=== PATIENT | male | born 1995 | race American Indian/Alaskan Native ===

== ENCOUNTER 2021-07-27 11:38 | Emergency (ER) | payer SELFPAY ==
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
[2021-07-27 12:35] LABS: Basophils % (Auto) 0.4 % (0.0-1.8); Eosinophils % (Auto) 0.7 % (0.0-4.3); Hematocrit 44.7 % (35.5-45.6); Hemoglobin 14.5 gm/dl (11.8-15.2); Lymphocytes # (Auto) 1.6 K/mm3 (1.2-5.4); Lymphocytes % (Auto) 34.8 % (13.4-35.0); Mean Corpuscular HGB Conc 32 % (32-34); Mean Corpuscular Volume 88 fl (84-94); Monocytes # (Auto) 0.4 K/mm3 (0.0-0.8); Platelet Count 208 K/mm3 (140-440); Red Blood Count 5.09 M/mm3 (3.65-5.03); Red Cell Distribution Width 14.2 % (13.2-15.2)
[2021-07-27 12:49] LABS: BUN/Creatinine Ratio 11; Blood Urea Nitrogen 11 mg/dL (9-20); Calcium 9.5 mg/dL (8.4-10.2); Hemolysis Index 87
[2021-07-27 13:52] LABS: Bilirubin,Urine NEG (Negative); Blood,Urine NEG (Negative); Color,Urine Yellow (Yellow); Mucus,Urine 2+ /HPF; Protein,Urine <15 mg/dL mg/dL (Negative); Urobilinogen,Urine < 2.0 mg/dL (<2.0); WBC,Urine < 1.0 /HPF (0.0-6.0)
[2021-07-27 13:54] LABS: Amphetamine Screen,Urine Negative; Benzodiazepines Screen,Urine Negative; Cocaine Screen,Urine Negative; Methadone Screen,Urine Negative; Opiate Screen,Urine Negative
[2021-07-27 14:15] LABS: Cannabinoid Screen,Urine Positive
[2021-07-27] MEDS ORDERED: ZIPRASIDONE MESYLATE 20 MG VIAL IM ONE (23:32)
[2021-07-27] MEDS ORDERED: diphenhydrAMINE 50 MG/ML VIAL IM ONE (23:32)
--- NOTE | 2021-07-28 12:32 | Event Note ---
Date: 07/28/21 S: Patient has no complaints. O: No overnight events. Patient is calm and cooperative. Vital signs stable. A: Acute psychosis P: 1013; awaiting inpatient psychiatric placement
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
[2021-07-28] MEDS: risperiDONE 0.25 MG TAB PO SCH ×2 (14:07→23:14)
[2021-07-28] MEDS ORDERED: LORazepam 2 MG/ML VIAL IM ONE (15:35)
[2021-07-28] MEDS ORDERED: ZIPRASIDONE MESYLATE 20 MG VIAL IM ONE (15:35)
[2021-07-28] MEDS: traZODone 50 MG TAB PO SCH (23:14)
[2021-07-29] MEDS ORDERED: risperiDONE 1 MG TAB ONE (07:00)
[2021-07-29] MEDS ORDERED: ZIPRASIDONE 20 MG CAP ONE (07:00)
[2021-07-29] MEDS ORDERED: traZODone 50 MG TAB PO ONE (07:00)
[2021-07-29] MEDS ORDERED: risperiDONE 0.25 MG TAB ONE (09:00)
[2021-07-29] MEDS: risperiDONE 0.25 MG TAB PO SCH (09:43)
--- NOTE | 2021-07-29 10:27 | Progress Note ---
Subjective - Reason for Consult Consult date: 07/29/21 Reason for consult: psychosis - Chief Complaint Chief complaint: The patient was seen today. He states he feels better. He is still having psychosis and his thought process is illogical. He denies hallucinations initially, but when I ask him again about fantasies of raping women, the patient says "it's when my focusing starts to decrease that causes me to be aroused." He says "it's like I can feel hormones in my stomach that I need to do something about." he patient says "I can't live like this, but I don't want to rape anybody. I'd rather it be a mutual agreement." He then says "the voices are telling me to do it." He denies SI/HI. REVIEW OF SYSTEMS Constitutional: Negative for weight loss ENT: Negative for stridor Respiratory: Negative for cough or hemoptysis All other systems reviewed and are negative MENTAL STATUS EXAMINATION General Appearance and Behavior: Age appropriate, good hygiene, wearing appropriate clothes, calm and cooperative Cooperation: cooperative Psychomotor Behavior: Psychomotor normal Mood: better Affect and affective range: congruent with stated mood Thought Process: illogical Thought Content: Hallucinations Speech: Normal rate, volume and rhythm Suicidal Ideation: Denies Homicidal Ideation: Denies Hallucinations: Auditory Delusions: Yes Impulse Control: Impaired Insight and Judgment: Limited insight and judgment Memory: Limited Attention: Limited Orientation: Alert, oriented Assessment and Plan (1) Schizoaffective Disorder TREATMENT PLAN 1013 Increase Risperidone 1mg po BID Trazodone 50mg po qhs Sitter: per primary Medical: per primary Disposition: Recommend acute psychiatric inpatient treatment Will follow. Thanks Case staffed with Dr. Ku Mental Status Exam - Vital signs Last Vital Signs Temp 98.8 F 07/29/21 08:43 Pulse 84 07/29/21 08:43 Resp 16 07/29/21 08:43 BP 106/59 07/29/21 08:43 Pulse Ox 100 07/29/21 08:43
[2021-07-29] MEDS: risperiDONE 1 MG TAB PO SCH ×2 (11:15→22:00)
[2021-07-29] MEDS: traZODone 50 MG TAB PO SCH (22:00)
--- NOTE | 2021-07-30 09:18 | Progress Note ---
Subjective - Reason for Consult Consult date: 07/30/21 Reason for consult: psychosis - Chief Complaint Chief complaint: The patient was seen today. He denies hallucinations, but he is still responding to internal stimuli. He is staring intensely. When asking was he still feeling like he felt yesterday, the patient says "I feel like I can breath." When asking why was he staring he says, "I'm just pain attention." He denies SI/HI. REVIEW OF SYSTEMS Constitutional: Negative for weight loss ENT: Negative for stridor Respiratory: Negative for cough or hemoptysis All other systems reviewed and are negative MENTAL STATUS EXAMINATION General Appearance and Behavior: Age appropriate, good hygiene, wearing appropriate clothes, calm and cooperative Cooperation: cooperative Psychomotor Behavior: Psychomotor normal Mood: better Affect and affective range: congruent with stated mood Thought Process: illogical Thought Content: Hallucinations Speech: Normal rate, volume and rhythm Suicidal Ideation: Denies Homicidal Ideation: Denies Hallucinations: Auditory Delusions: Yes Impulse Control: Impaired Insight and Judgment: Limited insight and judgment Memory: Limited Attention: Limited Orientation: Alert, oriented Assessment and Plan (1) Schizoaffective Disorder TREATMENT PLAN 1013 Increase Risperidone 2mg po BID Continue Trazodone 50mg po qhs Sitter: per primary Medical: per primary Disposition: Recommend acute psychiatric inpatient treatment Will follow. Thanks Case staffed with Dr. Ku Mental Status Exam - Vital signs Last Vital Signs Temp 98 F 07/30/21 08:15 Pulse 84 07/30/21 08:15 Resp 20 07/30/21 08:15 BP 120/76 07/30/21 08:15 Pulse Ox 98 07/30/21 08:15
[2021-07-30] MEDS: risperiDONE 1 MG TAB PO SCH ×2 (09:47→22:24)
--- NOTE | 2021-07-30 10:16 | Event Note ---
No overnight issues. Psychiatric team recommended acute psychiatric inpatient treatment. Patient is medically clear for psychiatric care.
[2021-07-30] MEDS: traZODone 50 MG TAB PO SCH (22:24)
--- NOTE | 2021-07-31 08:36 | Progress Note ---
Subjective - Reason for Consult Consult date: 07/31/21 Reason for consult: psychosis - Chief Complaint Chief complaint: The patient was seen today. He says he's feeling okay. He denies SI/HI. He also initially denies hallucinations, but then tells me that the t.v is not a normal t.v. He says "it seems like it's directly talking to me and playing tricks on me." The sitter says around 4 pm every day the patient has severe psychosis. He says the patient starts talking to the voices and thinks Africans are in the t.v. The sitter says they have to keep the t.v off to keep from upsetting him. REVIEW OF SYSTEMS Constitutional: Negative for weight loss ENT: Negative for stridor Respiratory: Negative for cough or hemoptysis All other systems reviewed and are negative MENTAL STATUS EXAMINATION General Appearance and Behavior: Age appropriate, good hygiene, wearing appropriate clothes, calm and cooperative Cooperation: cooperative Psychomotor Behavior: Psychomotor normal Mood: better Affect and affective range: congruent with stated mood Thought Process: illogical Thought Content: Hallucinations Speech: Normal rate, volume and rhythm Suicidal Ideation: Denies Homicidal Ideation: Denies Hallucinations: Auditory Delusions: Yes Impulse Control: Impaired Insight and Judgment: Limited insight and judgment Memory: Limited Attention: Limited Orientation: Alert, oriented Assessment and Plan (1) Schizoaffective Disorder TREATMENT PLAN 1013 Continue Risperidone 2mg po BID Continue Trazodone 50mg po qhs Depakote DR 125mg po BID Start Prozac 20mg po daily Sitter: per primary Medical: per primary Disposition: Recommend acute psychiatric inpatient treatment Will follow. Thanks Case staffed with Dr. Ku Mental Status Exam - Vital signs Last Vital Signs Temp 99.1 F 07/30/21 20:50 Pulse 80 07/30/21 20:50 Resp 16 07/30/21 20:50 BP 111/60 07/30/21 20:50 Pulse Ox 98 07/30/21 20:50
[2021-07-31] MEDS: risperiDONE 1 MG TAB PO SCH ×2 (10:27→22:43)
[2021-07-31] MEDS: FLUoxetine 20 MG CAP PO SCH (10:27)
[2021-07-31] MEDS: DIVALPROEX DR 125 MG TAB PO SCH ×2 (10:27→22:43)
--- NOTE | 2021-07-31 10:58 | Event Note ---
Date: 07/31/21 Patient is a 25-year-old F Lebanese male who is still exhibiting some active psychotic behaviors. Patient still hard to direct from hallucinations and delusions. Patient to continue is a 1013. Patient is medically cleared. Patient is stable at this time and needing no additional interventions. Please see psychiatry note as follows: Psychiatry Progress Note Patient Name: ROCHELLE MATHIS Date of : 89 Patient Status: Emergency Emergency Provider: MAGGY PARMAR Date: 07/31/21 08:31 Initialization Date: 07/31/21 08:31 Subjective - Reason for Consult Consult date: 07/31/21 Reason for consult: psychosis - Chief Complaint Chief complaint: The patient was seen today. He says he's feeling okay. He denies SI/HI. He also initially denies hallucinations, but then tells me that the t.v is not a normal t.v. He says "it seems like it's directly talking to me and playing tricks on me." The sitter says around 4 pm every day the patient has severe psychosis. He says the patient starts talking to the voices and thinks Africans are in the t.v. The sitter says they have to keep the t.v off to keep from upsetting him. REVIEW OF SYSTEMS Constitutional: Negative for weight loss ENT: Negative for stridor Respiratory: Negative for cough or hemoptysis All other systems reviewed and are negative MENTAL STATUS EXAMINATION General Appearance and Behavior: Age appropriate, good hygiene, wearing appropriate clothes, calm and cooperative Cooperation: cooperative Psychomotor Behavior: Psychomotor normal Mood: better Affect and affective range: congruent with stated mood Thought Process: illogical Thought Content: Hallucinations Speech: Normal rate, volume and rhythm Suicidal Ideation: Denies Homicidal Ideation: Denies Hallucinations: Auditory Delusions: Yes Impulse Control: Impaired Insight and Judgment: Limited insight and judgment Memory: Limited Attention: Limited Orientation: Alert, oriented Assessment and Plan (1) Schizoaffective Disorder TREATMENT PLAN 1013 Continue Risperidone 2mg po BID Continue Trazodone 50mg po qhs Depakote DR 125mg po BID Start Prozac 20mg po daily Sitter: per primary Medical: per primary Disposition: Recommend acute psychiatric inpatient treatment Will follow. Thanks Case staffed with Dr. Ku
[2021-07-31] MEDS ORDERED: ZIPRASIDONE MESYLATE 20 MG VIAL IM ONE ×2 (15:18→15:19)
[2021-07-31] MEDS: traZODone 50 MG TAB PO SCH (22:43)
[2021-08-01] MEDS: risperiDONE 1 MG TAB PO SCH (09:37)
[2021-08-01] MEDS: DIVALPROEX DR 125 MG TAB PO SCH (09:37)
[2021-08-01] MEDS: FLUoxetine 20 MG CAP PO SCH (09:37)
--- NOTE | 2021-08-01 11:19 | Event Note ---
Date: 08/01/21 The patient was evaluated in the emergency department for symptoms described in the history of present illness. He/she was evaluated in the context of the global COVID-19 pandemic, which necessitated consideration that the patient might be at risk for infection with the virus that causes COVID-19. Institutional protocols and algorithms that pertain to the evaluation of patients at risk for COVID-19 are in a state of rapid change based on information released by regulatory bodies including the CDC and federal and state organizations. These policies and algorithms were followed during the patient's care in the emergency department. Please note that these policies, procedures and recommendations changed on a rapid basis. Laboratory studies, vital signs, nursing documentation, ER documentation, and psychiatric documentation are reviewed and appreciated. Nursing team reports no acute events this morning or concerns. The patient is awake and ambulating and does not appear to be in any acute distress. The patient was deemed medically suitable for psychiatric disposition and placement during his initial ER evaluation. The patient continues to remain medically suitable for psychiatric placement and disposition. He is currently pending psychiatric placement. Vital Signs 07/27/21 07/27/21 07/27/21 16:58 17:56 20:03 Temperature 98.1 F 98.4 F Pulse Rate 84 67 Respiratory 18 16 Rate Blood Pressure 122/64 127/78 [Right] O2 Sat by Pulse 98 98 100 Oximetry 07/28/21 07/28/21 07/28/21 08:13 09:30 22:34 Temperature 97.6 F 97.3 F L Pulse Rate 90 102 H Respiratory 20 18 Rate Blood Pressure 107/64 92/55 [Right] O2 Sat by Pulse 97 97 98 Oximetry 07/29/21 07/29/21 07/29/21 01:56 08:06 08:43 Temperature 97.7 F 98.8 F Pulse Rate 86 84 Respiratory 18 16 Rate Blood Pressure 101/56 106/59 [Right] O2 Sat by Pulse 100 100 100 Oximetry 07/29/21 07/29/21 07/30/21 19:46 19:54 02:11 Temperature 98.2 F 98.4 F Pulse Rate 77 80 Respiratory 16 18 Rate Blood Pressure 107/58 104/51 [Right] O2 Sat by Pulse 97 100 97 Oximetry 07/30/21 07/30/21 07/30/21 08:15 12:31 20:50 Temperature 98 F 99.1 F Pulse Rate 84 80 Respiratory 20 16 Rate Blood Pressure 120/76 111/60 [Right] O2 Sat by Pulse 98 98 98 Oximetry 07/31/21 07/31/21 12:00 12:07 Temperature 97.8 F Pulse Rate 82 Respiratory 18 20 Rate Blood Pressure 114/63 [Right] O2 Sat by Pulse 99 98 Oximetry Lab Results 07/27/21 07/27/21 07/27/21 Range/Units 12:12 12:12 12:12 WBC 4.5 (4.5-11.0) K/mm3 RBC 5.09 H (3.65-5.03) M/mm3 Hgb 14.5 (11.8-15.2) gm/dl Hct 44.7 (35.5-45.6) % MCV 88 (84-94) fl MCH 29 (28-32) pg MCHC 32 (32-34) % RDW 14.2 (13.2-15.2) % Plt Count 208 (140-440) K/mm3 Lymph % (Auto) 34.8 (13.4-35.0) % [place] % (Auto) 10.0 H (0.0-7.3) % Eos % (Auto) 0.7 (0.0-4.3) % Baso % (Auto) 0.4 (0.0-1.8) % Lymph # (Auto) 1.6 (1.2-5.4) K/mm3 [place] # (Auto) 0.4 (0.0-0.8) K/mm3 Eos # (Auto) 0.0 (0.0-0.4) K/mm3 Baso # (Auto) 0.0 (0.0-0.1) K/mm3 Seg Neutrophils % 54.1 (40.0-70.0) % Seg Neutrophils # 2.4 (1.8-7.7) K/mm3 Sodium 140 (137-145) mmol/L Potassium 4.0 (3.6-5.0) mmol/L Chloride 104.8 (98-107) mmol/L Carbon Dioxide 24 (22-30) mmol/L Anion Gap 15 mmol/L BUN 11 (9-20) mg/dL Creatinine 1.0 (0.8-1.3) mg/dL Estimated GFR > 60 ml/min BUN/Creatinine Ratio 11 % Glucose 88 (75-100) mg/dL Calcium 9.5 (8.4-10.2) mg/dL Urine Color (Yellow) Urine Turbidity (Clear) Urine pH (5.0-7.0) Ur Specific [place] (1.003-1.030) Urine Protein (Negative) mg/dL Urine Glucose (UA) (Negative) mg/dL Urine Ketones (Negative) mg/dL Urine Blood (Negative) Urine Nitrite (Negative) Urine Bilirubin (Negative) Urine Urobilinogen (<2.0) mg/dL Ur Leukocyte Esterase (Negative) Urine WBC (Auto) (0.0-6.0) /HPF Urine RBC (Auto) (0.0-6.0) /HPF Urine Mucus /HPF Urine Opiates Screen Urine Methadone Screen Ur Barbiturates Screen Ur Phencyclidine Scrn Ur Amphetamines Screen U Benzodiazepines Scrn Urine Cocaine Screen U Marijuana (THC) Screen Drugs of Abuse Note Plasma/Serum Alcohol < 0.01 (0-0.07) % Coronavirus (PCR) (Negative) 07/27/21 07/27/21 07/28/21 Range/Units Unknown Unknown 08:39 WBC (4.5-11.0) K/mm3 RBC (3.65-5.03) M/mm3 Hgb (11.8-15.2) gm/dl Hct (35.5-45.6) % MCV (84-94) fl MCH (28-32) pg MCHC (32-34) % RDW (13.2-15.2) % Plt Count (140-440) K/mm3 Lymph % (Auto) (13.4-35.0) % [place] % (Auto) (0.0-7.3) % Eos % (Auto) (0.0-4.3) % Baso % (Auto) (0.0-1.8) % Lymph # (Auto) (1.2-5.4) K/mm3 [place] # (Auto) (0.0-0.8) K/mm3 Eos # (Auto) (0.0-0.4) K/mm3 Baso # (Auto) (0.0-0.1) K/mm3 Seg Neutrophils % (40.0-70.0) % Seg Neutrophils # (1.8-7.7) K/mm3 Sodium (137-145) mmol/L Potassium (3.6-5.0) mmol/L Chloride (98-107) mmol/L Carbon Dioxide (22-30) mmol/L Anion Gap mmol/L BUN (9-20) mg/dL Creatinine (0.8-1.3) mg/dL Estimated GFR ml/min BUN/Creatinine Ratio % Glucose (75-100) mg/dL Calcium (8.4-10.2) mg/dL Urine Color Yellow (Yellow) Urine Turbidity Clear (Clear) Urine pH 7.0 (5.0-7.0) Ur Specific [place] 1.020 (1.003-1.030) Urine Protein <15 mg/dl (Negative) mg/dL Urine Glucose (UA) Neg (Negative) mg/dL Urine Ketones Neg (Negative) mg/dL Urine Blood Neg (Negative) Urine Nitrite Neg (Negative) Urine Bilirubin Neg (Negative) Urine Urobilinogen < 2.0 (<2.0) mg/dL Ur Leukocyte Esterase Neg (Negative) Urine WBC (Auto) < 1.0 (0.0-6.0) /HPF Urine RBC (Auto) 2.0 (0.0-6.0) /HPF Urine Mucus 2+ /HPF Urine Opiates Screen Negative Urine Methadone Screen Negative Ur Barbiturates Screen Negative Ur Phencyclidine Scrn Negative Ur Amphetamines Screen Negative U Benzodiazepines Scrn Negative Urine Cocaine Screen Negative U Marijuana (THC) Screen Positive Drugs of Abuse Note Disclamer Plasma/Serum Alcohol (0-0.07) % Coronavirus (PCR) Negative (Negative)
--- NOTE | 2021-08-01 12:45 | Progress Note ---
Subjective - Reason for Consult Consult date: 08/01/21 Reason for consult: Mental health evaluation - Chief Complaint Chief complaint: The patient was seen today. He reports doing well. The patient states sleep and appetite as good. He denies any current suicidal/homicidal ideation and denies hallucinations. REVIEW OF SYSTEMS Constitutional: Negative for weight loss ENT: Negative for stridor Respiratory: Negative for cough or hemoptysis All other systems reviewed and are negative MENTAL STATUS EXAMINATION General Appearance and Behavior: Age appropriate, good hygiene, wearing appropriate clothes, calm and cooperative Cooperation: cooperative Psychomotor Behavior: Psychomotor normal Mood: Doing well Affect and affective range: congruent with stated mood Thought Process: logical Thought Content: Denies Speech: Normal rate, volume and rhythm Suicidal Ideation: Denies Homicidal Ideation: Denies Hallucinations:Denies Delusions: None Impulse Control: Impaired Insight and Judgment: Limited insight and judgment Memory: Limited Attention: Limited Orientation: Alert, oriented Assessment and Plan (1) Schizoaffective Disorder TREATMENT PLAN Discontinue 1013 Continue Risperidone 2mg po BID Continue Trazodone 50mg po qhs Depakote DR 125mg po BID Start Prozac 20mg po daily Sitter: per primary Medical: per primary Disposition: Do not recommend acute psychiatric inpatient treatment. [facility] will provide patient with psychiatry outpatient resources. Will sign off. Thanks Case staffed with Dr. Ku Mental Status Exam - Vital signs Last Vital Signs Temp 97.8 F 07/31/21 12:07 Pulse 82 07/31/21 12:07 Resp 20 07/31/21 12:07 BP 114/63 07/31/21 12:07 Pulse Ox 98 07/31/21 12:07
[2021-08-01 15:04] VITALS: BP 106/65
== END 2021-08-01 15:06 | disposition home or self-care (01) ==
LOC: EEVIPCON 11:38 → ED 11:38
DX: F23 Brief psychotic disorder (principal); F31.9 Bipolar disorder, unspecified; Z20.822 Contact with and (suspected) exposure to COVID-19; Z88.0 Allergy status to penicillin; Z79.899 Other long term (current) drug therapy
CPT/HCPCS: 36415; 80048; 80307; 81001; 85025; 96372; 99285; J1200; J2060; J3486; U0003; 80320; G0480